=== PATIENT | female | born 1960 | race Caucasian/White ===

== ENCOUNTER 2019-02-09 10:16 | Day surgery (SDC) | payer OTHER ==
[2019-02-09] MEDS ORDERED: Xylocaine-Mpf 2% 5 Ml Vial IJ ONE ×2 (10:17)
[2019-02-09] MEDS ORDERED: Decadron 4 MG INJ IV ONE ×2 (10:17)
[2019-02-09] MEDS ORDERED: Ketamine HCl 50 MG/ML ONE (11:44)
[2019-02-09] MEDS ORDERED: DIPRIVAN 200 MG/20 ML IV ONE (11:44)
[2019-02-09] MEDS ORDERED: Lactated Ringers 1,000 ML IV ONE (12:49)
--- NOTE | 2019-02-09 13:45 | XRAY ---
Indication: Right C3-C6 MBB. Intraoperative fluoroscopy was provided for 25 seconds. 2 digital spot images submitted for interpretation demonstrate posterior needle tips projecting over the expected right C3-C6 nerve roots. Correlate with intraoperative findings/report.
--- NOTE | 2019-02-09 13:50 | XRAY ---
25 seconds fluoroscopy time in surgery for right C3-C6 MBB.
== END 2019-02-09 12:20 | disposition home or self-care (01) ==
LOC: SDC-PAIN 10:16
PROVIDERS: ATTEND Psychiatry & Neurology Pain Medicine
DX: M47.812 Spondylosis without myelopathy or radiculopathy, cervical region (principal); I10 Essential (primary) hypertension; Z79.899 Other long term (current) drug therapy
CPT/HCPCS: 64490; 64491; 64492; 72020; 77002; J1100; J2704